=== PATIENT | female | born 1995 | race Caucasian/White ===

== ENCOUNTER 2016-09-15 06:20 | Emergency (ER) | payer OTHER ==
[2016-09-15 06:40] VITALS: TEMP 98.7; BMI 33.1
--- NOTE | 2016-09-15 07:50 | PDOC ---
History of Present Illness - General Chief Complaint: Psychiatric Stated Complaint: PANIC ATTACKS Time Seen by Provider: 09/15/16 07:11 History Source: Patient Exam Limitations: No Limitations - History of Present Illness Initial Comments: 21-year-old female presents to the ED with complaints of nervousness, heart palpitations, difficulty breathing, and feeling like her throat is closing intermittently since September 11. Patient states symptoms normally wake her up at around 4- 5 AM and to resolve with time but states today she has been up since 4 AM and symptoms have not completely resolved. Patient states that tried over- the-counter teas, yoga, relation techniques with no improvement. Patient denies recent change in weight, thyroid disorder, intolerance to heat, intolerance to cold, lethargy, hair loss, recent illness, or recent travel. Patient denies drug or alcohol use and states symptoms began after she had a bad breakup with her boyfriend who she is currently not with. Timing/Duration: intermittent Severity: moderate Associated Symptoms: anxiety Past History - Past Medical History Allergies/Adverse Reactions: Allergies No Known Allergies Allergy (Verified 09/15/16 06:31) Home Medications: Ambulatory Orders No Home Medications 0 dose .ROUTE UTDICT 08/03/13 Psychosocial History: Yes: no pertinent history Surgical History: Yes: No Surgical History LMP: 10/20/12 - Family History Significant Family History: Yes: no pertinent family hx - Social History Smoking History: No Smoking Status: Never smoked Number of Cigarettes Per Day: 0 Alcohol Use: none Drug Use: none Patient Lives Alone: No Lives With: parents *Review of Systems - Review of Systems Able to Perform ROS?: Yes Constitutional: No: Symptoms Reported HEENTM: No: Symptoms Reported Respiratory: Yes: Shortness of Breath Cardiac (ROS): Yes: Palpitations ABD/GI: No: Symptoms Reported : No: Symptoms Reported Integumentary: No: Symptoms Reported Neurological: No: Symptoms reported Endocrine: No: Symptoms Reported *Physical Exam - Vital Signs Last Vital Signs Temp Pulse Resp BP Pulse Ox 98.7 F 88 14 165/98 100 09/15/16 06:32 09/15/16 06:32 09/15/16 06:32 09/15/16 06:32 09/15/16 06:32 - Physical Exam General Appearance: Yes: Nourished, Appropriately Dressed. No: Apparent Distress HEENT: positive: TMs Normal, Pharynx Normal. negative: Pale Conjunctivae Neck: positive: Normal Thyroid, Supple Respiratory/Chest: positive: Lungs Clear, Normal Breath Sounds. negative: Respiratory Distress, Accessory Muscle Use Cardiovascular: positive: Regular Rhythm, Regular Rate. negative: Murmur, Gallop/S3 Gastrointestinal/Abdominal: positive: Soft. negative: Tenderness Extremity: negative: Pedal Edema Integumentary: positive: Normal Color, Warm, Moist Neurologic: positive: Normal Mood/Affect (calm body language ), Motor Strength 5 /5 (ambulatory) Plan - Progress Note Progress Note: 09/15/16 07:41 Patient here with intermittent anxiety-like symptoms. Patient on exam appeared calm and states symptoms have subsided slightly since arrival. Patien with likely panic attacks but will order CBC to rule out anemia, comp to rule out electrolyte imbalance, TSH to rule out thyroid disorders, urine to rule out , and an EKG. 09/15/16 09:07 Laboratory Tests 09/15/16 09/15/16 09/15/16 07:19 07:19 07:19 WBC 6.3 Hgb 13.1 Hct 40.0 Plt Count 185 Neutrophils % 57.3 Sodium 137 Potassium 4.1 Chloride 102 Carbon Dioxide 28 Anion Gap 7 L BUN 10 Creatinine 0.5 L Magnesium 2.0 AST 24 ALT 22 TSH Urine HCG, Qual Negative 09/15/16 07:30 WBC Hgb Hct Plt Count Neutrophils % Sodium Potassium Chloride Carbon Dioxide Anion Gap BUN Creatinine Magnesium AST ALT TSH 2.16 Urine HCG, Qual - Order(s) Order(s): Orders last 12 hours Category Date Time Status ELECTROCARDIOGRAM [CARD] Stat Cardiology 09/15/16 07:20 Ordered CBC WITH DIFFERENTIAL Stat Lab 09/15/16 07:19 Ordered HCG,QUALITATIVE URINE Stat Lab 09/15/16 07:19 Ordered - Laboratory CBC & Chemistry Diagram: 09/15/16 07:19 09/15/16 07:19 *DC/Admit/Observation/Transfer Diagnosis at time of Disposition: Anxiety - Discharge Dispostion Disposition: HOME Condition at time of disposition: Good - Patient Instructions Printed Discharge Instructions: DI for Anxiety -- Adult, Anxiety and Panic Attacks (Alternative Therapy) Additional Instructions: Please try relaxation techniques listed on your discharge summary. If no improvement you may also call your insurance company and see what provided you have for social service agency director or psychotherapist.
[2016-09-15 08:22] LABS: BASOPHIL 0.6 % (0-2.0); EOSINOPHIL 3.6 % (0-4.5); MCH 28.6 pg (25.7-33.7); MCHC 32.6 g/dl (32.0-36.0); MEAN CELL VOLUME 87.6 fl (80-96); MEAN PLT VOLUME 9.7 fl (7.5-11.1); NEUTROPHILS 57.3 % (42.8-82.8); PLATELET COUNT 185 K/MM3 (134-434); RDW 16.1 % (11.6-15.6); WHITE BLOOD COUNT 6.3 K/mm3 (4.0-10.0)
[2016-09-15 08:49] LABS: ALBUMIN 3.9 g/dl (3.4-5.0); ALK PHOS 72 U/L (45-117); ANION GAP 7 (8-16); BILIRUBIN,TOTAL 0.5 mg/dL (0.2-1.0); CO2 28 mmol/L (21-32); CREATININE 0.5 mg/dL (0.55-1.02); GLUCOSE,RANDOM 80 mg/dL (74-106); SGOT/AST 24 U/L (15-37); SGPT/ALT 22 U/L (12-78); TOT PROT 7.5 g/dl (6.4-8.2)
[2016-09-15 09:46] VITALS: BP 133/70; PULSE 90
--- NOTE | 2016-09-16 10:41 | EKG ---
Test Reason : Blood Pressure : / mmHG Vent. Rate : 063 BPM Atrial Rate : 063 BPM P-R Int : 150 ms QRS Dur : 090 ms QT Int : 384 ms P-R-T Axes : 018 075 046 degrees QTc Int : 392 ms NORMAL SINUS RHYTHM NORMAL ECG NO PREVIOUS ECGS AVAILABLE Confirmed by HARLEY PICKARD MD ([id number]) on 09/16/2016 10:41:26 AM Referred By: Confirmed By:HARLEY PICKARD MD
== END 2016-09-15 09:46 | disposition home or self-care (01) ==
LOC: JER 06:20
DX: F41.0 Panic disorder [episodic paroxysmal anxiety] (principal)
CPT/HCPCS: 36415; 80053; 83735; 84443; 84703; 85025; 93005; 93010; 99284-25

== ENCOUNTER 2020-08-03 08:42 | Emergency (ER) | payer BC, OTHER ==
[2020-08-03 08:55] VITALS: BMI 44.1
[2020-08-03 11:04] LABS: BASO % 0.9 % (0-2.0); EOS % 1.6 % (0-4.5); HEMATOCRIT 42.2 % (32.4-45.2); HEMOGLOBIN 14.3 GM/dL (10.7-15.3); MCH 33.5 pg (25.7-33.7); MCHC 33.8 g/dl (32.0-36.0); MEAN CELL VOLUME 99.1 fl (80-96); MEAN PLT VOLUME 8.4 fl (7.5-11.1); MONO % 5.6 % (3.8-10.2); NEUT % 72.9 % (42.8-82.8); PLATELET COUNT 231 K/MM3 (134-434); RBC 4.26 M/mm3 (3.60-5.2); RDW 17.2 % (11.6-15.6); WHITE BLOOD COUNT 8.4 K/mm3 (4.0-10.0)
[2020-08-03 11:27] LABS: CHLORIDE 98 mmol/L (98-107); SODIUM 137 mmol/L (136-145)
[2020-08-03 11:29] LABS: CALCIUM 9.2 mg/dL (8.5-10.1)
[2020-08-03 11:30] LABS: ALBUMIN 3.7 g/dl (3.4-5.0); ANION GAP 7 MMOL/L (8-16); BLOOD UREA NITROGEN 4.1 mg/dL (7-18); CO2 31 mmol/L (21-32); GLUCOSE,RANDOM 105 mg/dL (74-106)
[2020-08-03 11:33] LABS: CREATININE 0.4 mg/dL (0.55-1.3); SGOT/AST 117 U/L (15-37); SGPT/ALT 27 U/L (13-61)
[2020-08-03 11:35] LABS: BILIRUBIN,TOTAL 1.3 mg/dL (0.2-1); TOT PROT 8.4 g/dl (6.4-8.2)
[2020-08-03 11:36] LABS: ALK PHOS 140 U/L (45-117)
[2020-08-03 11:38] LABS: N-TERMINAL BNP 10.7 pg/ml (5-125)
[2020-08-03 15:04] VITALS: BP 152/87; PULSE 89; TEMP 98.8
== END 2020-08-03 15:29 | disposition home or self-care (01) ==
LOC: JER 08:42
DX: B36.0 Pityriasis versicolor (principal); R60.0 Localized edema; I87.2 Venous insufficiency (chronic) (peripheral); L53.9 Erythematous condition, unspecified
CPT/HCPCS: 36415; 71046-TC-FY; 80053; 82550; 83880; 84484; 85025; 87880; 93306-TC; 93970-TC; 99285-25

== ENCOUNTER 2021-01-23 13:22 | Emergency (ER) | payer BC ==
[2021-01-23 13:46] VITALS: TEMP 97.8; BMI 45.7
[2021-01-23] MEDS ORDERED: chlordiazePOXIDE HCL 25 MG CAPSULE PO ONE (14:16)
[2021-01-23] MEDS ORDERED: chlordiazePOXIDE HCL 25 MG CAPSULE ONE (14:32)
[2021-01-23] MEDS ORDERED: FLUCONAZOLE 50 MG TABLET PO ONE (14:42)
[2021-01-23] MEDS ORDERED: FLUCONAZOLE 150 MG TABLET PO ONE (14:44)
[2021-01-23 15:39] LABS: EPI CELLS 13 /uL (0-25.1); HYALINE CASTS 27 /uL (0-3.1); PH,URINE 5.5 (5.0-8.0); URINE APPEARANCE CLOUDY; URINE BACTERIA >9,000 /uL (0-1359); URINE BILIRUBIN 3+ (NEGATIVE); URINE COLOR ORANGE; URINE GLUCOSE (UA) NEGATIVE (NEGATIVE); URINE KETONE TRACE (NEGATIVE); URINE LEUK ESTERASE 2+ (NEGATIVE); URINE NITRITE POSITIVE (NEGATIVE); URINE PROTEIN 2+ (NEGATIVE); URINE RBC 12 /uL (0-23.9); URINE WBC 190 /uL (0-25.8)
[2021-01-23 15:40] VITALS: BP 125/79; PULSE 95
[2021-01-23 15:50] LABS: HCG,QUALITATIVE URINE NEGATIVE; URINE CRYSTALS NON SEEN /hpf; YEAST NON SEEN (NEGATIVE)
== END 2021-01-23 15:52 | disposition home or self-care (01) ==
LOC: JERFT 13:22
DX: B37.3 Candidiasis of vulva and vagina (principal); B35.4 Tinea corporis; F10.10 Alcohol abuse, uncomplicated; N30.00 Acute cystitis without hematuria
CPT/HCPCS: 36415; 81003; 82962; 84703; 87086; 87186; 87491; 87591; 99283-25

== ENCOUNTER 2021-01-29 10:03 | Inpatient (IN) | payer BC ==
[2021-01-29] MEDS ORDERED: FLUORESCEIN NA 1 EA STRIP OU ONE (11:31)
[2021-01-29] MEDS ORDERED: TETRACAINE 0.5% HCL 0.6ML DROPPER.BOTTLE OU ONE (11:31)
[2021-01-29] MEDS ORDERED: MAG HYDROX/ALH/SMC/DPHA/LIDO 240 ML MOUTHWASH MM ONE (13:29)
[2021-01-29] MEDS ORDERED: SODIUM CHLORIDE 1,000 ML IV STA (16:24)
[2021-01-29 18:30] LABS: BASO % 0.3 % (0-2.0); EOS % 0.5 % (0-4.5); HEMATOCRIT 33.3 % (32.4-45.2); LYMPH % 13.7 % (8-40); MCHC 33.1 g/dl (32.0-36.0); MEAN CELL VOLUME 105.7 fl (80-96); MEAN PLT VOLUME 8.3 fl (7.5-11.1); MONO % 6.6 % (3.8-10.2); NEUT % 78.9 % (42.8-82.8); PLATELET COUNT 286 10^3/uL (134-434); RBC 3.15 M/mm3 (3.60-5.2); RDW 21.1 % (11.6-15.6); WHITE BLOOD COUNT 11.7 K/mm3 (4.0-10.0)
[2021-01-29 18:44] LABS: BLOOD UREA NITROGEN 4.5 mg/dL (7-18); CALCIUM 9.2 mg/dL (8.5-10.1)
[2021-01-29 18:48] LABS: CREATININE 0.5 mg/dL (0.55-1.3)
[2021-01-29 18:49] LABS: BILIRUBIN,TOTAL 5.2 mg/dL (0.2-1); TOT PROT 7.7 g/dl (6.4-8.2)
[2021-01-29 21:16] LABS: EPI CELLS 35 /uL (0-25.1); HYALINE CASTS 61 /uL (0-3.1); PH,URINE 5.5 (5.0-8.0); URINE APPEARANCE CLOUDY; URINE BILIRUBIN 3+ (NEGATIVE); URINE COLOR ORANGE; URINE GLUCOSE (UA) NEGATIVE (NEGATIVE); URINE KETONE NEGATIVE (NEGATIVE); URINE LEUK ESTERASE 1+ (NEGATIVE); URINE NITRITE POSITIVE (NEGATIVE); URINE PROTEIN 1+ (NEGATIVE); URINE UROBILINOGEN 4.0 E.U/dl mg/dL (0.2-1.0); URINE WBC 189 /uL (0-25.8)
[2021-01-29 22:19] LABS: INR 1.81 (0.83-1.09); PROTHROMBIN TIME (PATIENT) 21.3 SEC (9.7-13.0)
[2021-01-29 22:21] LABS: ACTIVATED PTT 39.5 SECONDS (25.2-36.5)
[2021-01-29] MEDS ORDERED: ACYCLOVIR 1000 MG (50MG/ML) VIAL IVPB ONE (23:00)
[2021-01-29 23:45] LABS: ANISOCYTOSIS 2+; MACROCYTOSIS 2+; PLATELET ESTIMATE ADEQUATE
[2021-01-29] MEDS ORDERED: ACYCLOVIR INJECTION 400 MG in DEXTROSE 5%-WATER - 100 ML IVPB ONE (23:45)
[2021-01-30 00:48] LABS: HIV INTERPRETATION NEGATIVE (NEGATIVE)
[2021-01-30] MEDS ORDERED: CEFTRIAXONE 1,000 MG in DEXTROSE 5%-WATER - 50 ML IVPB ONE (01:03)
[2021-01-30] MEDS: SODIUM CHLORIDE 1,000 ML IV SCH ×2 (01:44→18:27)
[2021-01-30] MEDS ORDERED: CEFTRIAXONE 1 GM/50 ML BAG ONE (01:50)
[2021-01-30] MEDS ORDERED: FOLIC ACID INJECTION - 1 MG, THIAMINE HCL 100 MG, MULTIVIT INJECTION ADULT 10 ML in SOD... IVPB ONE (02:54)
[2021-01-30] MEDS ORDERED: ACETAMINOPHEN 1000 MG/100 ML VIAL IVPB PRN (02:58)
[2021-01-30 05:36] LABS: URINE RBC 6 /uL (0-23.9)
[2021-01-30] MEDS ORDERED: FOLIC ACID INJECTION - 1 MG, THIAMINE HCL 100 MG in SODIUM CHLORIDE 998.8 ML IVPB ONE (06:45)
[2021-01-30] MEDS ORDERED: FLUCONAZOLE 150 MG TABLET PO ONE ×2 (08:00→09:13)
[2021-01-30] MEDS: MAG HYDROX/ALH/SMC/DPHA/LIDO 240 ML MOUTHWASH MM SCH ×4 (08:49→23:07)
[2021-01-30] MEDS ORDERED: MULTIVITAMINS (DAILY MVI) TABLET (FP) ONE (09:14)
[2021-01-30] MEDS ORDERED: ENOXAPARIN NA (PORCINE) 40 MG/0.4 ML DISP.SYRIN SQ ONE (09:14)
[2021-01-30] MEDS: ENOXAPARIN NA (PORCINE) 40 MG/0.4 ML DISP.SYRIN SQ SCH (09:15)
[2021-01-30] MEDS: MULTIVITAMINS (DAILY MVI) TABLET (FP) PO SCH (09:15)
[2021-01-30] MEDS ORDERED: PANTOPRAZOLE SODIUM 40 MG/100 ML BAG IVPB ONE (09:16)
[2021-01-30] MEDS ORDERED: ACYCLOVIR INJECTION 700 MG in DEXTROSE 5%-WATER - 100 ML IVPB SCH (10:00)
[2021-01-30] MEDS: PANTOPRAZOLE SODIUM 40 MG VIAL IVPUSH SCH (11:01)
[2021-01-30] MEDS: CLOTRIMAZOLE 1% CREAM TP SCH ×2 (16:13→21:49)
[2021-01-30] MEDS ORDERED: PT OWN MED DRAWER 7, Y5N ONE (16:51)
[2021-01-30] MEDS: ACYCLOVIR INJECTION 1,000 MG in DEXTROSE 5%-WATER - 250 ML IVPB SCH (18:27)
[2021-01-30] MEDS: POTASSIUM CHLORIDE TABS 20 MEQ TABLET.ER (FP) PO SCH (18:29)
[2021-01-30] MEDS ORDERED: FLU VACC QS2021-22(6MOS UP)/PF 60 MCG/0.5 ML SYRINGE IM ONE (19:01)
[2021-01-30 19:50] LABS: ARTERIAL BLD GAS O2 SATURATION 99.2 % (95-98); ARTERIAL BLOOD GAS BASE EXCESS 10.4 mmol/L (-2-2); ARTERIAL BLOOD GAS PO2 159.3 mmHg (80-100); ARTERIAL BLOOD GAS pH 7.541 (7.350-7.450)
[2021-01-30] MEDS: ALBUTEROL SO4 2.5/IPRATROPIUM 0.5 INH SOL 3 ML VIAL.NEB. NEB PRN (20:12)
[2021-01-31] MEDS: ACYCLOVIR INJECTION 1,000 MG in DEXTROSE 5%-WATER - 250 ML IVPB SCH ×3 (01:42→17:24)
[2021-01-31] MEDS: MAG HYDROX/ALH/SMC/DPHA/LIDO 240 ML MOUTHWASH MM SCH ×5 (05:49→23:32)
[2021-01-31 07:18] LABS: BASO % 0.4 % (0-2.0); EOS % 1.3 % (0-4.5); HEMOGLOBIN 9.7 GM/dL (10.7-15.3); LYMPH % 14.6 % (8-40); MCH 35.5 pg (25.7-33.7); MCHC 33.7 g/dl (32.0-36.0); MEAN CELL VOLUME 105.5 fl (80-96); MEAN PLT VOLUME 8.1 fl (7.5-11.1); MONO % 6.7 % (3.8-10.2); PLATELET COUNT 279 10^3/uL (134-434); RBC 2.74 M/mm3 (3.60-5.2); RDW 21.1 % (11.6-15.6); WHITE BLOOD COUNT 10.8 K/mm3 (4.0-10.0)
[2021-01-31 07:29] LABS: INR 1.89 (0.83-1.09); PROTHROMBIN TIME (PATIENT) 21.3 SEC (9.7-13.0)
[2021-01-31 07:55] LABS: ALBUMIN 2.5 g/dl (3.4-5.0); BILIRUBIN,DIRECT 4.1 mg/dL (0.0-0.2); BILIRUBIN,TOTAL 5.2 mg/dL (0.2-1); TOT PROT 6.6 g/dl (6.4-8.2)
[2021-01-31] MEDS ORDERED: DEXTROSE 5%-WATER - 50 ML IVPB ONE (09:04)
[2021-01-31] MEDS ORDERED: cefTRIAXone SODIUM 1 GM VIAL ONE (09:04)
[2021-01-31] MEDS: SODIUM CHLORIDE 1,000 ML IV SCH ×2 (09:10→20:46)
[2021-01-31] MEDS: ENOXAPARIN NA (PORCINE) 40 MG/0.4 ML DISP.SYRIN SQ SCH (09:15)
[2021-01-31] MEDS: PANTOPRAZOLE SODIUM 40 MG VIAL IVPUSH SCH (09:17)
[2021-01-31] MEDS: MULTIVITAMINS (DAILY MVI) TABLET (FP) PO SCH (09:17)
[2021-01-31] MEDS: CLOTRIMAZOLE 1% CREAM TP SCH ×2 (09:17→21:33)
[2021-01-31] MEDS: POTASSIUM CHLORIDE TABS 20 MEQ TABLET.ER (FP) PO SCH (09:17)
[2021-01-31] MEDS: THIAMINE HCL 100 MG TABLET (FP) PO SCH (09:18)
[2021-01-31 09:26] LABS: ALBUMIN 2.5 g/dl (3.4-5.0); BILIRUBIN,TOTAL 5.1 mg/dL (0.2-1); CREATININE 1.1 mg/dL (0.55-1.3); MAGNESIUM 1.8 mg/dL (1.8-2.4); TOT PROT 6.6 g/dl (6.4-8.2)
[2021-01-31] MEDS ORDERED: CEFTRIAXONE 1 GM in DEXTROSE 5%-WATER - 50 ML IVPB SCH (10:00)
[2021-01-31] MEDS: CEFUROXIME AXETIL 500 MG TABLET PO SCH (21:33)
[2021-02-01] MEDS: ACYCLOVIR INJECTION 1,000 MG in DEXTROSE 5%-WATER - 250 ML IVPB SCH ×3 (01:15→17:23)
[2021-02-01] MEDS: SODIUM CHLORIDE 1,000 ML IV SCH (06:20)
[2021-02-01] MEDS: LEVOTHYROXINE NA 25 MCG TABLET (FP) PO SCH (06:20)
[2021-02-01] MEDS: MAG HYDROX/ALH/SMC/DPHA/LIDO 240 ML MOUTHWASH MM SCH ×4 (06:21→23:46)
[2021-02-01] MEDS: ALBUTEROL SO4 2.5/IPRATROPIUM 0.5 INH SOL 3 ML VIAL.NEB. NEB PRN ×2 (08:27→23:23)
[2021-02-01 08:47] LABS: BASO % 0.4 % (0-2.0); EOS % 1.7 % (0-4.5); HEMATOCRIT 28.2 % (32.4-45.2); HEMOGLOBIN 9.8 GM/dL (10.7-15.3); LYMPH % 11.6 % (8-40); MCH 36.1 pg (25.7-33.7); MCHC 34.6 g/dl (32.0-36.0); MEAN CELL VOLUME 104.3 fl (80-96); MEAN PLT VOLUME 7.8 fl (7.5-11.1); MONO % 9.7 % (3.8-10.2); NEUT % 76.6 % (42.8-82.8); PLATELET COUNT 293 10^3/uL (134-434); RDW 21.4 % (11.6-15.6); WHITE BLOOD COUNT 10.8 K/mm3 (4.0-10.0)
[2021-02-01] MEDS: POLYETHYLENE GLYCOL (HEALTHYLAX) 3350 17 GM PACKET PO PRN (09:34)
[2021-02-01] MEDS: THIAMINE HCL 100 MG TABLET (FP) PO SCH (09:35)
[2021-02-01] MEDS: CLOTRIMAZOLE 1% CREAM TP SCH ×2 (09:35→21:18)
[2021-02-01] MEDS: PANTOPRAZOLE SODIUM 40 MG VIAL IVPUSH SCH (09:35)
[2021-02-01] MEDS: MULTIVITAMINS (DAILY MVI) TABLET (FP) PO SCH (09:35)
[2021-02-01] MEDS: POTASSIUM CHLORIDE TABS 20 MEQ TABLET.ER (FP) PO SCH (09:35)
[2021-02-01] MEDS: ENOXAPARIN NA (PORCINE) 40 MG/0.4 ML DISP.SYRIN SQ SCH (09:35)
[2021-02-01] MEDS: CEFUROXIME AXETIL 500 MG TABLET PO SCH ×2 (09:35→21:18)
[2021-02-01 10:44] LABS: ALBUMIN 2.5 g/dl (3.4-5.0); BILIRUBIN,TOTAL 5.2 mg/dL (0.2-1); BLOOD UREA NITROGEN 8.5 mg/dL (7-18); CALCIUM 8.3 mg/dL (8.5-10.1); CREATININE 1.3 mg/dL (0.55-1.3); TOT PROT 6.9 g/dl (6.4-8.2)
[2021-02-02] MEDS: ACYCLOVIR INJECTION 1,000 MG in DEXTROSE 5%-WATER - 250 ML IVPB SCH ×2 (01:03→09:49)
[2021-02-02] MEDS: MAG HYDROX/ALH/SMC/DPHA/LIDO 240 ML MOUTHWASH MM SCH ×3 (06:04→18:02)
[2021-02-02] MEDS: LEVOTHYROXINE NA 25 MCG TABLET (FP) PO SCH (06:04)
[2021-02-02 08:23] LABS: BASO % 0.6 % (0-2.0); EOS % 1.8 % (0-4.5); HEMATOCRIT 29.3 % (32.4-45.2); HEMOGLOBIN 9.8 GM/dL (10.7-15.3); LYMPH % 10.8 % (8-40); MCH 35.5 pg (25.7-33.7); MCHC 33.5 g/dl (32.0-36.0); MEAN CELL VOLUME 105.8 fl (80-96); MEAN PLT VOLUME 7.9 fl (7.5-11.1); MONO % 8.7 % (3.8-10.2); NEUT % 78.1 % (42.8-82.8); PLATELET COUNT 324 10^3/uL (134-434); RBC 2.77 M/mm3 (3.60-5.2); RDW 21.4 % (11.6-15.6)
[2021-02-02] MEDS: MULTIVITAMINS (DAILY MVI) TABLET (FP) PO SCH (09:48)
[2021-02-02] MEDS: ENOXAPARIN NA (PORCINE) 40 MG/0.4 ML DISP.SYRIN SQ SCH (09:48)
[2021-02-02] MEDS: POTASSIUM CHLORIDE TABS 20 MEQ TABLET.ER (FP) PO SCH (09:48)
[2021-02-02] MEDS: CLOTRIMAZOLE 1% CREAM TP SCH ×2 (09:48→21:51)
[2021-02-02] MEDS: CEFUROXIME AXETIL 500 MG TABLET PO SCH ×2 (09:48→21:51)
[2021-02-02] MEDS: THIAMINE HCL 100 MG TABLET (FP) PO SCH (09:48)
[2021-02-02] MEDS: POLYETHYLENE GLYCOL (HEALTHYLAX) 3350 17 GM PACKET PO PRN (09:49)
[2021-02-02] MEDS: PANTOPRAZOLE SODIUM 40 MG VIAL IVPUSH SCH (09:49)
[2021-02-02 11:45] LABS: ALBUMIN 2.6 g/dl (3.4-5.0); BILIRUBIN,TOTAL 5.2 mg/dL (0.2-1); BLOOD UREA NITROGEN 12.6 mg/dL (7-18); CALCIUM 8.6 mg/dL (8.5-10.1); TOT PROT 7.1 g/dl (6.4-8.2)
[2021-02-02] MEDS ORDERED: SODIUM CHLORIDE 1,000 ML IV SCH (13:45)
[2021-02-02] MEDS ORDERED: FUROSEMIDE 40 MG/4 ML INJECTABLE VIAL IVPUSH ONE (13:59)
[2021-02-02] MEDS ORDERED: POTASSIUM CHLORIDE TABS 20 MEQ TABLET.ER (FP) PO ONE (14:02)
[2021-02-03] MEDS: MAG HYDROX/ALH/SMC/DPHA/LIDO 240 ML MOUTHWASH MM SCH ×5 (00:52→23:09)
[2021-02-03] MEDS: LEVOTHYROXINE NA 25 MCG TABLET (FP) PO SCH ×2 (06:03→08:11)
[2021-02-03] MEDS ORDERED: PT OWN MED DRAWER 7, Y5N ONE (06:20)
[2021-02-03] MEDS: guaiFENesin/D-M SUGAR-FREE/ACLHOL-FREE 118 ML BOTTLE PO PRN (06:20)
[2021-02-03] MEDS: ALBUTEROL SO4 2.5/IPRATROPIUM 0.5 INH SOL 3 ML VIAL.NEB. NEB PRN (06:48)
[2021-02-03 08:21] LABS: BASO % 0.8 % (0-2.0); EOS % 2.5 % (0-4.5); HEMATOCRIT 28.8 % (32.4-45.2); HEMOGLOBIN 9.6 GM/dL (10.7-15.3); LYMPH % 11.9 % (8-40); MCH 35.5 pg (25.7-33.7); MCHC 33.5 g/dl (32.0-36.0); MEAN PLT VOLUME 8.4 fl (7.5-11.1); MONO % 10.1 % (3.8-10.2); NEUT % 74.7 % (42.8-82.8); PLATELET COUNT 332 10^3/uL (134-434); RBC 2.71 M/mm3 (3.60-5.2); RDW 21.4 % (11.6-15.6); WHITE BLOOD COUNT 10.1 K/mm3 (4.0-10.0)
[2021-02-03 09:06] LABS: ALBUMIN 2.3 g/dl (3.4-5.0); BLOOD UREA NITROGEN 17.4 mg/dL (7-18); CALCIUM 8.8 mg/dL (8.5-10.1)
[2021-02-03 09:11] LABS: BILIRUBIN,TOTAL 5.6 mg/dL (0.2-1); TOT PROT 6.8 g/dl (6.4-8.2)
[2021-02-03] MEDS: PANTOPRAZOLE SODIUM 40 MG VIAL IVPUSH SCH (09:16)
[2021-02-03] MEDS: MULTIVITAMINS (DAILY MVI) TABLET (FP) PO SCH (09:16)
[2021-02-03] MEDS: CLOTRIMAZOLE 1% CREAM TP SCH ×2 (09:16→21:26)
[2021-02-03] MEDS: ENOXAPARIN NA (PORCINE) 40 MG/0.4 ML DISP.SYRIN SQ SCH (09:16)
[2021-02-03] MEDS: POTASSIUM CHLORIDE TABS 20 MEQ TABLET.ER (FP) PO SCH (09:16)
[2021-02-03] MEDS: CEFUROXIME AXETIL 500 MG TABLET PO SCH ×2 (09:16→21:26)
[2021-02-03] MEDS: THIAMINE HCL 100 MG TABLET (FP) PO SCH (09:16)
[2021-02-03] MEDS: ALBUTEROL SO4 2.5/IPRATROPIUM 0.5 INH SOL 3 ML VIAL.NEB. NEB SCH ×2 (15:00→20:00)
[2021-02-03 15:50] LABS: IRON SERUM 33 ug/dL (50-175); TOTAL IRON BINDING CAPACITY 199 ug/dL (250-450)
[2021-02-03 17:29] VITALS: BMI 40.7
[2021-02-03] MEDS ORDERED: SODIUM CHLORIDE 1,000 ML IV SCH (17:30)
[2021-02-03 20:52] LABS: EPI CELLS 11 /uL (0-25.1); HYALINE CASTS 4 /uL (0-3.1); URINE APPEARANCE CLOUDY; URINE BILIRUBIN 2+ (NEGATIVE); URINE COLOR DK YELLOW; URINE GLUCOSE (UA) NEGATIVE (NEGATIVE); URINE KETONE NEGATIVE (NEGATIVE); URINE LEUK ESTERASE TRACE (NEGATIVE); URINE NITRITE POSITIVE (NEGATIVE); URINE PROTEIN TRACE (NEGATIVE); URINE WBC 398 /uL (0-25.8)
[2021-02-03 20:58] LABS: URINE BACTERIA 219.5 /uL (0-1359); URINE RBC 565.3 /uL (0-23.9)
[2021-02-04] MEDS: MAG HYDROX/ALH/SMC/DPHA/LIDO 240 ML MOUTHWASH MM SCH ×4 (05:26→23:40)
[2021-02-04] MEDS: LEVOTHYROXINE NA 25 MCG TABLET (FP) PO SCH (06:03)
[2021-02-04] MEDS: ALBUTEROL SO4 2.5/IPRATROPIUM 0.5 INH SOL 3 ML VIAL.NEB. NEB SCH ×3 (07:25→21:19)
[2021-02-04 08:40] LABS: CALCIUM 8.9 mg/dL (8.5-10.1)
[2021-02-04 08:41] LABS: ALBUMIN 2.3 g/dl (3.4-5.0); BLOOD UREA NITROGEN 18.4 mg/dL (7-18)
[2021-02-04 08:44] LABS: CREATININE 1.4 mg/dL (0.55-1.3)
[2021-02-04 08:46] LABS: BILIRUBIN,TOTAL 5.6 mg/dL (0.2-1)
[2021-02-04] MEDS: PANTOPRAZOLE SODIUM 40 MG VIAL IVPUSH SCH (09:20)
[2021-02-04] MEDS: CEFUROXIME AXETIL 500 MG TABLET PO SCH ×2 (09:20→21:02)
[2021-02-04] MEDS: POTASSIUM CHLORIDE TABS 20 MEQ TABLET.ER (FP) PO SCH (09:20)
[2021-02-04] MEDS: ENOXAPARIN NA (PORCINE) 40 MG/0.4 ML DISP.SYRIN SQ SCH (09:20)
[2021-02-04] MEDS: THIAMINE HCL 100 MG TABLET (FP) PO SCH (09:21)
[2021-02-04] MEDS: MULTIVITAMINS (DAILY MVI) TABLET (FP) PO SCH (09:21)
[2021-02-04] MEDS: CLOTRIMAZOLE 1% CREAM TP SCH ×2 (09:21→21:02)
[2021-02-04] MEDS ORDERED: SODIUM CHLORIDE 1,000 ML IV SCH (13:17)
[2021-02-04] MEDS ORDERED: IRON SUCROSE INJECTION 200 MG in SODIUM CHLORIDE 90 ML IVPB ONE (13:26)
[2021-02-04] MEDS: guaiFENesin/D-M SUGAR-FREE/ACLHOL-FREE 118 ML BOTTLE PO PRN (20:39)
[2021-02-05] MEDS: guaiFENesin/D-M SUGAR-FREE/ACLHOL-FREE 118 ML BOTTLE PO PRN ×2 (04:30→21:02)
[2021-02-05 05:36] LABS: PHOSPHOROUS 3.7 mg/dL (2.5-4.9)
[2021-02-05] MEDS: LEVOTHYROXINE NA 25 MCG TABLET (FP) PO SCH (05:59)
[2021-02-05] MEDS: MAG HYDROX/ALH/SMC/DPHA/LIDO 240 ML MOUTHWASH MM SCH ×4 (05:59→23:14)
[2021-02-05] MEDS: ALBUTEROL SO4 2.5/IPRATROPIUM 0.5 INH SOL 3 ML VIAL.NEB. NEB SCH ×3 (07:35→19:52)
[2021-02-05 09:21] LABS: BLOOD UREA NITROGEN 15.7 mg/dL (7-18); CALCIUM 8.6 mg/dL (8.5-10.1)
[2021-02-05 09:25] LABS: CREATININE 0.9 mg/dL (0.55-1.3)
[2021-02-05] MEDS: THIAMINE HCL 100 MG TABLET (FP) PO SCH (09:31)
[2021-02-05] MEDS: MULTIVITAMINS (DAILY MVI) TABLET (FP) PO SCH (09:32)
[2021-02-05] MEDS: CLOTRIMAZOLE 1% CREAM TP SCH ×2 (09:32→22:15)
[2021-02-05] MEDS: POTASSIUM CHLORIDE TABS 20 MEQ TABLET.ER (FP) PO SCH (09:32)
[2021-02-05] MEDS: CEFUROXIME AXETIL 500 MG TABLET PO SCH ×2 (09:32→22:15)
[2021-02-05] MEDS: POLYETHYLENE GLYCOL (HEALTHYLAX) 3350 17 GM PACKET PO PRN (09:32)
[2021-02-05] MEDS: ENOXAPARIN NA (PORCINE) 40 MG/0.4 ML DISP.SYRIN SQ SCH (09:32)
[2021-02-05 09:45] LABS: INR 1.88 (0.83-1.09); PROTHROMBIN TIME (PATIENT) 21.2 SEC (9.7-13.0)
[2021-02-05] MEDS ORDERED: PANTOPRAZOLE 40 MG TABLET PO SCH (10:00)
[2021-02-05 13:23] LABS: BASO % 0.3 % (0-2.0); EOS % 2.4 % (0-4.5); HEMATOCRIT 29.2 % (32.4-45.2); HEMOGLOBIN 9.9 GM/dL (10.7-15.3); MCH 36.1 pg (25.7-33.7); MCHC 33.9 g/dl (32.0-36.0); MEAN CELL VOLUME 106.6 fl (80-96); MEAN PLT VOLUME 8.2 fl (7.5-11.1); MONO % 9.8 % (3.8-10.2); NEUT % 77.5 % (42.8-82.8); PLATELET COUNT 348 10^3/uL (134-434); RBC 2.74 M/mm3 (3.60-5.2); RDW 22.1 % (11.6-15.6); WHITE BLOOD COUNT 10.6 K/mm3 (4.0-10.0)
[2021-02-05 14:37] LABS: ANISOCYTOSIS 1+; MACROCYTOSIS 1+; PLATELET ESTIMATE NORMAL; TARGET CELLS 1+; TEAR DROP CELLS 1+
[2021-02-06] MEDS: MAG HYDROX/ALH/SMC/DPHA/LIDO 240 ML MOUTHWASH MM SCH ×3 (05:32→17:24)
[2021-02-06] MEDS: LEVOTHYROXINE NA 25 MCG TABLET (FP) PO SCH (06:50)
[2021-02-06] MEDS: ALBUTEROL SO4 2.5/IPRATROPIUM 0.5 INH SOL 3 ML VIAL.NEB. NEB SCH ×3 (07:42→20:35)
[2021-02-06] MEDS: THIAMINE HCL 100 MG TABLET (FP) PO SCH (09:03)
[2021-02-06] MEDS: POTASSIUM CHLORIDE TABS 20 MEQ TABLET.ER (FP) PO SCH (09:03)
[2021-02-06] MEDS: MULTIVITAMINS (DAILY MVI) TABLET (FP) PO SCH (09:03)
[2021-02-06] MEDS: guaiFENesin/D-M SUGAR-FREE/ACLHOL-FREE 118 ML BOTTLE PO PRN (09:03)
[2021-02-06] MEDS: ENOXAPARIN NA (PORCINE) 40 MG/0.4 ML DISP.SYRIN SQ SCH (09:04)
[2021-02-06] MEDS: CLOTRIMAZOLE 1% CREAM TP SCH ×2 (09:04→22:39)
[2021-02-06 09:54] LABS: ALBUMIN 2.4 g/dl (3.4-5.0)
[2021-02-06 09:58] LABS: BILIRUBIN,DIRECT 4.5 mg/dL (0.0-0.2)
[2021-02-06 09:59] LABS: BILIRUBIN,TOTAL 5.5 mg/dL (0.2-1); TOT PROT 7.1 g/dl (6.4-8.2)
[2021-02-06] MEDS ORDERED: PHYTONADIONE 10 MG/1 ML AMP IVPB ONE (11:30)
[2021-02-06] MEDS: FUROSEMIDE 20 MG TABLET (FP) PO SCH (12:56)
[2021-02-06 13:30] LABS: CALCIUM 8.8 mg/dL (8.5-10.1)
[2021-02-06 13:31] LABS: BLOOD UREA NITROGEN 13.1 mg/dL (7-18)
[2021-02-06 13:34] LABS: CREATININE 0.7 mg/dL (0.55-1.3)
[2021-02-07] MEDS: MAG HYDROX/ALH/SMC/DPHA/LIDO 240 ML MOUTHWASH MM SCH ×4 (02:21→17:12)
[2021-02-07] MEDS: guaiFENesin/D-M SUGAR-FREE/ACLHOL-FREE 118 ML BOTTLE PO PRN ×2 (02:35→10:25)
[2021-02-07] MEDS: LEVOTHYROXINE NA 25 MCG TABLET (FP) PO SCH (06:12)
[2021-02-07] MEDS: ALBUTEROL SO4 2.5/IPRATROPIUM 0.5 INH SOL 3 ML VIAL.NEB. NEB SCH ×3 (07:55→20:48)
[2021-02-07] MEDS: MULTIVITAMINS (DAILY MVI) TABLET (FP) PO SCH (10:25)
[2021-02-07] MEDS: THIAMINE HCL 100 MG TABLET (FP) PO SCH (10:25)
[2021-02-07] MEDS: POTASSIUM CHLORIDE TABS 20 MEQ TABLET.ER (FP) PO SCH (10:25)
[2021-02-07] MEDS: ENOXAPARIN NA (PORCINE) 40 MG/0.4 ML DISP.SYRIN SQ SCH (10:25)
[2021-02-07] MEDS: FUROSEMIDE 20 MG TABLET (FP) PO SCH (10:25)
[2021-02-07] MEDS: CLOTRIMAZOLE 1% CREAM TP SCH (10:26)
[2021-02-07 10:41] LABS: BASO % 0.7 % (0-2.0); EOS % 3.8 % (0-4.5); HEMATOCRIT 27.1 % (32.4-45.2); HEMOGLOBIN 9.1 GM/dL (10.7-15.3); LYMPH % 13.8 % (8-40); MCH 36.1 pg (25.7-33.7); MCHC 33.5 g/dl (32.0-36.0); MEAN CELL VOLUME 107.8 fl (80-96); MEAN PLT VOLUME 8.7 fl (7.5-11.1); NEUT % 72.7 % (42.8-82.8); PLATELET COUNT 289 10^3/uL (134-434); RBC 2.52 M/mm3 (3.60-5.2); RDW 22.2 % (11.6-15.6); WHITE BLOOD COUNT 9.6 K/mm3 (4.0-10.0)
[2021-02-07 10:50] LABS: ALBUMIN 2.2 g/dl (3.4-5.0)
[2021-02-07 10:53] LABS: BILIRUBIN,DIRECT 4.3 mg/dL (0.0-0.2)
[2021-02-07 10:54] LABS: TOT PROT 6.7 g/dl (6.4-8.2)
[2021-02-07 10:55] LABS: BILIRUBIN,TOTAL 5.4 mg/dL (0.2-1)
[2021-02-07 12:25] LABS: INR 1.83 (0.83-1.09); PROTHROMBIN TIME (PATIENT) 20.6 SEC (9.7-13.0)
[2021-02-07 12:40] LABS: BLOOD UREA NITROGEN 10.8 mg/dL (7-18)
[2021-02-07 12:43] LABS: CREATININE 0.6 mg/dL (0.55-1.3)
[2021-02-07] MEDS ORDERED: FUROSEMIDE 40 MG/4 ML INJECTABLE VIAL IVPUSH ONE (13:01)
[2021-02-07 16:30] LABS: EPI CELLS 13 /uL (0-25.1); HYALINE CASTS 2 /uL (0-3.1); URINE APPEARANCE CLEAR; URINE BACTERIA 73 /uL (0-1359); URINE BILIRUBIN NEGATIVE (NEGATIVE); URINE COLOR YELLOW; URINE GLUCOSE (UA) NEGATIVE (NEGATIVE); URINE KETONE NEGATIVE (NEGATIVE); URINE LEUK ESTERASE TRACE (NEGATIVE); URINE NITRITE NEGATIVE (NEGATIVE); URINE PROTEIN NEGATIVE (NEGATIVE); URINE RBC 223 /uL (0-23.9); URINE WBC 21 /uL (0-25.8)
[2021-02-08] MEDS: CLOTRIMAZOLE 1% CREAM TP SCH ×3 (00:39→21:24)
[2021-02-08] MEDS: MAG HYDROX/ALH/SMC/DPHA/LIDO 240 ML MOUTHWASH MM SCH ×4 (00:57→17:03)
[2021-02-08] MEDS: LEVOTHYROXINE NA 25 MCG TABLET (FP) PO SCH (07:43)
[2021-02-08 09:22] LABS: BLOOD UREA NITROGEN 8.8 mg/dL (7-18); MAGNESIUM 1.5 mg/dL (1.8-2.4)
[2021-02-08 09:23] LABS: CALCIUM 8.5 mg/dL (8.5-10.1)
[2021-02-08 09:25] LABS: CREATININE 0.5 mg/dL (0.55-1.3)
[2021-02-08] MEDS: ALBUTEROL SO4 2.5/IPRATROPIUM 0.5 INH SOL 3 ML VIAL.NEB. NEB SCH ×3 (09:25→20:22)
[2021-02-08] MEDS ORDERED: PT OWN MED DRAWER 7, Y5N ONE ×2 (10:13→14:02)
[2021-02-08] MEDS: POTASSIUM CHLORIDE TABS 20 MEQ TABLET.ER (FP) PO SCH (10:15)
[2021-02-08] MEDS: ENOXAPARIN NA (PORCINE) 40 MG/0.4 ML DISP.SYRIN SQ SCH (10:15)
[2021-02-08] MEDS: THIAMINE HCL 100 MG TABLET (FP) PO SCH (10:15)
[2021-02-08] MEDS: guaiFENesin/D-M SUGAR-FREE/ACLHOL-FREE 118 ML BOTTLE PO PRN (10:15)
[2021-02-08] MEDS: MULTIVITAMINS (DAILY MVI) TABLET (FP) PO SCH (10:15)
[2021-02-08] MEDS: FUROSEMIDE 40 MG TABLET (FP) PO SCH (10:15)
[2021-02-08] MEDS: BUDESONIDE/FORMETEROL FUMARATE 160/4.5 mcg INHALER IH SCH ×2 (11:52→21:25)
[2021-02-08 12:52] LABS: BILIRUBIN,DIRECT 4.3 mg/dL (0.0-0.2)
[2021-02-08 12:54] LABS: BILIRUBIN,TOTAL 5.4 mg/dL (0.2-1); TOT PROT 6.4 g/dl (6.4-8.2)
[2021-02-08] MEDS ORDERED: FUROSEMIDE 40 MG TABLET (FP) PO ONE (14:00)
[2021-02-08] MEDS: MICONAZOLE NITRATE 200 MG VAGINAL SUPPOSITORY PV SCH (21:25)
[2021-02-08] MEDS: guaiFENesin/CODEINE 10 ML UNIT-DOSE CUPS PO PRN (21:44)
[2021-02-09] MEDS: MAG HYDROX/ALH/SMC/DPHA/LIDO 240 ML MOUTHWASH MM SCH ×4 (00:02→17:06)
[2021-02-09] MEDS ORDERED: FUROSEMIDE 40 MG/4 ML INJECTABLE VIAL IVPUSH ONE (04:15)
[2021-02-09] MEDS ORDERED: MAGNESIUM OXIDE 400 MG TABLET (FP) PO ONE (04:41)
[2021-02-09 05:08] LABS: ARTERIAL BLD GAS O2 SATURATION 96.6 % (95-98); ARTERIAL BLOOD GAS BASE EXCESS 3.6 mmol/L (-2-2); ARTERIAL BLOOD GAS PO2 87.8 mmHg (80-100); ARTERIAL BLOOD GAS pH 7.399 (7.350-7.450)
[2021-02-09 05:12] LABS: ALLENS TEST POSITIVE
[2021-02-09] MEDS: LEVOTHYROXINE NA 25 MCG TABLET (FP) PO SCH (06:42)
[2021-02-09] MEDS: ALBUTEROL SO4 2.5/IPRATROPIUM 0.5 INH SOL 3 ML VIAL.NEB. NEB SCH ×3 (08:47→20:15)
[2021-02-09 08:56] LABS: BASO % 0.5 % (0-2.0); EOS % 3.2 % (0-4.5); HEMATOCRIT 29.6 % (32.4-45.2); HEMOGLOBIN 9.8 GM/dL (10.7-15.3); LYMPH % 10.6 % (8-40); MCH 35.5 pg (25.7-33.7); MCHC 33.1 g/dl (32.0-36.0); MEAN CELL VOLUME 107.3 fl (80-96); MONO % 6.5 % (3.8-10.2); NEUT % 79.2 % (42.8-82.8); PLATELET COUNT 275 10^3/uL (134-434); RBC 2.76 M/mm3 (3.60-5.2); RDW 22.2 % (11.6-15.6); WHITE BLOOD COUNT 12.9 K/mm3 (4.0-10.0)
[2021-02-09 09:04] LABS: INR 1.81 (0.83-1.09); PROTHROMBIN TIME (PATIENT) 20.4 SEC (9.7-13.0)
[2021-02-09 09:23] LABS: MAGNESIUM 1.5 mg/dL (1.8-2.4)
[2021-02-09 09:26] LABS: PHOSPHOROUS 3.6 mg/dL (2.5-4.9)
[2021-02-09 09:28] LABS: BLOOD UREA NITROGEN 7.6 mg/dL (7-18); CALCIUM 8.6 mg/dL (8.5-10.1)
[2021-02-09 09:30] LABS: CREATININE 0.6 mg/dL (0.55-1.3)
[2021-02-09 09:31] LABS: BILIRUBIN,DIRECT 5.3 mg/dL (0.0-0.2)
[2021-02-09 09:32] LABS: BILIRUBIN,TOTAL 6.5 mg/dL (0.2-1); TOT PROT 7.4 g/dl (6.4-8.2)
[2021-02-09 09:36] LABS: ALBUMIN 2.4 g/dl (3.4-5.0)
[2021-02-09] MEDS ORDERED: PT OWN MED DRAWER 7, Y5N ONE (09:36)
[2021-02-09] MEDS: FUROSEMIDE 40 MG TABLET (FP) PO SCH (09:38)
[2021-02-09] MEDS: POTASSIUM CHLORIDE TABS 20 MEQ TABLET.ER (FP) PO SCH (09:38)
[2021-02-09] MEDS: ENOXAPARIN NA (PORCINE) 40 MG/0.4 ML DISP.SYRIN SQ SCH (09:38)
[2021-02-09] MEDS: MULTIVITAMINS (DAILY MVI) TABLET (FP) PO SCH (09:38)
[2021-02-09] MEDS: THIAMINE HCL 100 MG TABLET (FP) PO SCH (09:38)
[2021-02-09] MEDS: CLOTRIMAZOLE 1% CREAM TP SCH ×2 (09:39→21:38)
[2021-02-09] MEDS: BUDESONIDE/FORMETEROL FUMARATE 160/4.5 mcg INHALER IH SCH ×2 (09:39→21:37)
[2021-02-09] MEDS: guaiFENesin/CODEINE 10 ML UNIT-DOSE CUPS PO PRN (09:42)
[2021-02-09 10:56] LABS: ANISOCYTOSIS 2+; MACROCYTOSIS 2+; PLATELET ESTIMATE NORMAL
[2021-02-09] MEDS ORDERED: HYDROmorphone HCL 2 MG TABLET PO PRN (16:11)
[2021-02-09] MEDS: FUROSEMIDE 40 MG/4 ML INJECTABLE VIAL IVPUSH SCH (16:19)
[2021-02-09] MEDS ORDERED: hydrOXYzine HCL 10 MG/5 ML LIQUID BULK BOTTLE PO PRN (17:39)
[2021-02-09] MEDS: MICONAZOLE NITRATE 200 MG VAGINAL SUPPOSITORY PV SCH (21:37)
[2021-02-10] MEDS: MAG HYDROX/ALH/SMC/DPHA/LIDO 240 ML MOUTHWASH MM SCH ×6 (01:00→23:10)
[2021-02-10] MEDS: FUROSEMIDE 40 MG/4 ML INJECTABLE VIAL IVPUSH SCH ×2 (05:40→13:14)
[2021-02-10] MEDS: LEVOTHYROXINE NA 25 MCG TABLET (FP) PO SCH (06:10)
[2021-02-10] MEDS: ALBUTEROL SO4 2.5/IPRATROPIUM 0.5 INH SOL 3 ML VIAL.NEB. NEB SCH ×3 (08:05→20:05)
[2021-02-10 08:22] LABS: BASO % 0.7 % (0-2.0); HEMATOCRIT 29.4 % (32.4-45.2); HEMOGLOBIN 9.8 GM/dL (10.7-15.3); LYMPH % 14.1 % (8-40); MCH 35.6 pg (25.7-33.7); MCHC 33.4 g/dl (32.0-36.0); MEAN CELL VOLUME 106.6 fl (80-96); MEAN PLT VOLUME 9.2 fl (7.5-11.1); MONO % 4.8 % (3.8-10.2); NEUT % 76.4 % (42.8-82.8); PLATELET COUNT 257 10^3/uL (134-434); RBC 2.75 M/mm3 (3.60-5.2); RDW 21.9 % (11.6-15.6); WHITE BLOOD COUNT 11.2 K/mm3 (4.0-10.0)
[2021-02-10 08:28] LABS: INR 1.74 (0.83-1.09); PROTHROMBIN TIME (PATIENT) 20.5 SEC (9.7-13.0)
[2021-02-10 08:44] LABS: BLOOD UREA NITROGEN 7.9 mg/dL (7-18)
[2021-02-10 08:45] LABS: BILIRUBIN,TOTAL 5.6 mg/dL (0.2-1); TOT PROT 7.2 g/dl (6.4-8.2)
[2021-02-10 08:46] LABS: ALBUMIN 2.2 g/dl (3.4-5.0); BILIRUBIN,DIRECT 4.6 mg/dL (0.0-0.2); CREATININE 0.6 mg/dL (0.55-1.3)
[2021-02-10 08:47] LABS: CALCIUM 7.8 mg/dL (8.5-10.1)
[2021-02-10] MEDS: MULTIVITAMINS (DAILY MVI) TABLET (FP) PO SCH (09:40)
[2021-02-10] MEDS: ENOXAPARIN NA (PORCINE) 40 MG/0.4 ML DISP.SYRIN SQ SCH (09:40)
[2021-02-10] MEDS: BUDESONIDE/FORMETEROL FUMARATE 160/4.5 mcg INHALER IH SCH ×2 (09:40→23:10)
[2021-02-10] MEDS: POTASSIUM CHLORIDE TABS 20 MEQ TABLET.ER (FP) PO SCH (09:40)
[2021-02-10] MEDS: THIAMINE HCL 100 MG TABLET (FP) PO SCH (09:40)
[2021-02-10] MEDS: CLOTRIMAZOLE 1% CREAM TP SCH ×2 (09:45→21:41)
[2021-02-10] MEDS: NYSTATIN POWDER 100,000 UNITS/GM - 15 GM TOPICAL POWDER TP SCH (17:09)
[2021-02-10] MEDS: MICONAZOLE NITRATE 200 MG VAGINAL SUPPOSITORY PV SCH (21:41)
[2021-02-11] MEDS ORDERED: PT OWN MED DRAWER 7, Y5N ONE (06:49)
[2021-02-11] MEDS: MAG HYDROX/ALH/SMC/DPHA/LIDO 240 ML MOUTHWASH MM SCH ×3 (06:54→17:24)
[2021-02-11] MEDS: FUROSEMIDE 40 MG/4 ML INJECTABLE VIAL IVPUSH SCH ×2 (06:54→15:00)
[2021-02-11] MEDS: LEVOTHYROXINE NA 25 MCG TABLET (FP) PO SCH (06:54)
[2021-02-11] MEDS: ALBUTEROL SO4 2.5/IPRATROPIUM 0.5 INH SOL 3 ML VIAL.NEB. NEB SCH ×3 (07:28→20:09)
[2021-02-11 08:06] LABS: BASO % 0.8 % (0-2.0); EOS % 2.6 % (0-4.5); HEMATOCRIT 26.4 % (32.4-45.2); LYMPH % 13.8 % (8-40); MCH 36.1 pg (25.7-33.7); MEAN CELL VOLUME 106.1 fl (80-96); MEAN PLT VOLUME 9.5 fl (7.5-11.1); MONO % 6.3 % (3.8-10.2); NEUT % 76.5 % (42.8-82.8); PLATELET COUNT 228 10^3/uL (134-434); RBC 2.49 M/mm3 (3.60-5.2); RDW 21.8 % (11.6-15.6); WHITE BLOOD COUNT 10.5 K/mm3 (4.0-10.0)
[2021-02-11 08:43] LABS: CREATININE 0.4 mg/dL (0.55-1.3)
[2021-02-11 08:44] LABS: ALBUMIN 2.1 g/dl (3.4-5.0)
[2021-02-11 08:45] LABS: TOT PROT 6.5 g/dl (6.4-8.2)
[2021-02-11] MEDS: ENOXAPARIN NA (PORCINE) 40 MG/0.4 ML DISP.SYRIN SQ SCH (09:51)
[2021-02-11] MEDS: MULTIVITAMINS (DAILY MVI) TABLET (FP) PO SCH (09:52)
[2021-02-11] MEDS: THIAMINE HCL 100 MG TABLET (FP) PO SCH (09:52)
[2021-02-11] MEDS: POTASSIUM CHLORIDE TABS 20 MEQ TABLET.ER (FP) PO SCH (09:52)
[2021-02-11] MEDS: NYSTATIN POWDER 100,000 UNITS/GM - 15 GM TOPICAL POWDER TP SCH (09:53)
[2021-02-11] MEDS: CLOTRIMAZOLE 1% CREAM TP SCH ×2 (09:55→23:42)
[2021-02-11] MEDS: BUDESONIDE/FORMETEROL FUMARATE 160/4.5 mcg INHALER IH SCH ×2 (09:56→23:42)
[2021-02-12] MEDS: MAG HYDROX/ALH/SMC/DPHA/LIDO 240 ML MOUTHWASH MM SCH ×4 (01:00→18:00)
[2021-02-12] MEDS ORDERED: PT OWN MED DRAWER 7, Y5N ONE (06:09)
[2021-02-12] MEDS: FUROSEMIDE 40 MG/4 ML INJECTABLE VIAL IVPUSH SCH ×2 (06:12→13:25)
[2021-02-12] MEDS: LEVOTHYROXINE NA 25 MCG TABLET (FP) PO SCH (06:12)
[2021-02-12] MEDS: ALBUTEROL SO4 2.5/IPRATROPIUM 0.5 INH SOL 3 ML VIAL.NEB. NEB SCH ×3 (08:25→19:55)
[2021-02-12 09:24] LABS: EPI CELLS 29 /uL (0-25.1); HYALINE CASTS 6 /uL (0-3.1); PH,URINE 5.5 (5.0-8.0); URINE APPEARANCE CLEAR; URINE BILIRUBIN 2+ (NEGATIVE); URINE COLOR DK YELLOW; URINE GLUCOSE (UA) NEGATIVE (NEGATIVE); URINE KETONE NEGATIVE (NEGATIVE); URINE LEUK ESTERASE TRACE (NEGATIVE); URINE NITRITE POSITIVE (NEGATIVE); URINE PROTEIN NEGATIVE (NEGATIVE); URINE UROBILINOGEN 4.0 E.U/dl mg/dL (0.2-1.0); URINE WBC 43 /uL (0-25.8)
[2021-02-12] MEDS: ENOXAPARIN NA (PORCINE) 40 MG/0.4 ML DISP.SYRIN SQ SCH (09:42)
[2021-02-12] MEDS: THIAMINE HCL 100 MG TABLET (FP) PO SCH (09:43)
[2021-02-12] MEDS: POTASSIUM CHLORIDE TABS 20 MEQ TABLET.ER (FP) PO SCH ×2 (09:43→22:36)
[2021-02-12] MEDS: MULTIVITAMINS (DAILY MVI) TABLET (FP) PO SCH (09:43)
[2021-02-12] MEDS: CLOTRIMAZOLE 1% CREAM TP SCH ×2 (09:43→22:37)
[2021-02-12] MEDS: NYSTATIN POWDER 100,000 UNITS/GM - 15 GM TOPICAL POWDER TP SCH (09:44)
[2021-02-12] MEDS: BUDESONIDE/FORMETEROL FUMARATE 160/4.5 mcg INHALER IH SCH ×2 (09:45→22:36)
[2021-02-12 09:59] LABS: URINE RBC 17.9 /uL (0-23.9)
[2021-02-12 10:03] LABS: URINE BACTERIA 501.7 /uL (0-1359)
[2021-02-12] MEDS ORDERED: INSULIN (NOVOLOG) ASPART 100 UNITS/ML 10ML VIAL ONE (18:46)
[2021-02-12] MEDS: CEFUROXIME AXETIL 500 MG TABLET PO SCH (22:36)
[2021-02-13] MEDS: MAG HYDROX/ALH/SMC/DPHA/LIDO 240 ML MOUTHWASH MM SCH ×4 (00:04→17:22)
[2021-02-13] MEDS: LEVOTHYROXINE NA 25 MCG TABLET (FP) PO SCH (06:09)
[2021-02-13] MEDS: FUROSEMIDE 40 MG/4 ML INJECTABLE VIAL IVPUSH SCH ×2 (06:10→14:46)
[2021-02-13] MEDS: ALBUTEROL SO4 2.5/IPRATROPIUM 0.5 INH SOL 3 ML VIAL.NEB. NEB SCH (07:40)
[2021-02-13 09:10] LABS: BLOOD UREA NITROGEN 5.4 mg/dL (7-18); CALCIUM 8.3 mg/dL (8.5-10.1)
[2021-02-13 09:13] LABS: CREATININE 0.5 mg/dL (0.55-1.3)
[2021-02-13 09:18] LABS: N-TERMINAL BNP 283.2 pg/ml (5-125)
[2021-02-13] MEDS: ENOXAPARIN NA (PORCINE) 40 MG/0.4 ML DISP.SYRIN SQ SCH (09:35)
[2021-02-13] MEDS: POLYETHYLENE GLYCOL (HEALTHYLAX) 3350 17 GM PACKET PO PRN (09:35)
[2021-02-13] MEDS: POTASSIUM CHLORIDE TABS 20 MEQ TABLET.ER (FP) PO SCH ×2 (09:35→22:33)
[2021-02-13] MEDS: NYSTATIN POWDER 100,000 UNITS/GM - 15 GM TOPICAL POWDER TP SCH (09:36)
[2021-02-13] MEDS: CLOTRIMAZOLE 1% CREAM TP SCH ×2 (09:36→22:34)
[2021-02-13] MEDS: THIAMINE HCL 100 MG TABLET (FP) PO SCH (09:36)
[2021-02-13] MEDS: MULTIVITAMINS (DAILY MVI) TABLET (FP) PO SCH (09:36)
[2021-02-13] MEDS: BUDESONIDE/FORMETEROL FUMARATE 160/4.5 mcg INHALER IH SCH ×2 (09:37→22:35)
[2021-02-13] MEDS: CEFUROXIME AXETIL 500 MG TABLET PO SCH ×2 (09:41→22:33)
[2021-02-13 11:12] LABS: ALBUMIN 2.4 g/dl (3.4-5.0)
[2021-02-13 11:15] LABS: BILIRUBIN,DIRECT 4.2 mg/dL (0.0-0.2)
[2021-02-13 11:17] LABS: BILIRUBIN,TOTAL 5.2 mg/dL (0.2-1); TOT PROT 7.4 g/dl (6.4-8.2)
[2021-02-13] MEDS ORDERED: POTASSIUM CHLORIDE TABS 20 MEQ TABLET.ER (FP) PO ONE (13:45)
[2021-02-13] MEDS ORDERED: ACETAMINOPHEN 325 MG TABLET (FP) PO ONE (17:26)
[2021-02-14] MEDS: MAG HYDROX/ALH/SMC/DPHA/LIDO 240 ML MOUTHWASH MM SCH ×4 (00:35→17:28)
[2021-02-14] MEDS: FUROSEMIDE 40 MG/4 ML INJECTABLE VIAL IVPUSH SCH ×2 (06:01→14:18)
[2021-02-14] MEDS: LEVOTHYROXINE NA 25 MCG TABLET (FP) PO SCH (06:14)
[2021-02-14 08:31] LABS: EOS % 3.4 % (0-4.5); HEMATOCRIT 30.5 % (32.4-45.2); HEMOGLOBIN 10.2 GM/dL (10.7-15.3); LYMPH % 12.8 % (8-40); MCH 35.2 pg (25.7-33.7); MCHC 33.5 g/dl (32.0-36.0); MEAN CELL VOLUME 104.9 fl (80-96); MEAN PLT VOLUME 9.2 fl (7.5-11.1); MONO % 6.2 % (3.8-10.2); NEUT % 76.6 % (42.8-82.8); PLATELET COUNT 252 10^3/uL (134-434); RBC 2.91 M/mm3 (3.60-5.2); RDW 20.7 % (11.6-15.6); WHITE BLOOD COUNT 11.2 K/mm3 (4.0-10.0)
[2021-02-14 08:33] LABS: INR 1.82 (0.83-1.09); PROTHROMBIN TIME (PATIENT) 21.4 SEC (9.7-13.0)
[2021-02-14 09:12] LABS: CALCIUM 8.4 mg/dL (8.5-10.1)
[2021-02-14 09:13] LABS: ALBUMIN 2.3 g/dl (3.4-5.0); BLOOD UREA NITROGEN 5.9 mg/dL (7-18)
[2021-02-14 09:15] LABS: BILIRUBIN,DIRECT 4.2 mg/dL (0.0-0.2); CREATININE 0.5 mg/dL (0.55-1.3)
[2021-02-14 09:17] LABS: BILIRUBIN,TOTAL 5.2 mg/dL (0.2-1); TOT PROT 7.6 g/dl (6.4-8.2)
[2021-02-14] MEDS: ENOXAPARIN NA (PORCINE) 40 MG/0.4 ML DISP.SYRIN SQ SCH (09:25)
[2021-02-14] MEDS: MULTIVITAMINS (DAILY MVI) TABLET (FP) PO SCH (09:26)
[2021-02-14] MEDS: POTASSIUM CHLORIDE TABS 20 MEQ TABLET.ER (FP) PO SCH ×2 (09:26→21:59)
[2021-02-14] MEDS: CEFUROXIME AXETIL 500 MG TABLET PO SCH ×2 (09:26→21:59)
[2021-02-14] MEDS: THIAMINE HCL 100 MG TABLET (FP) PO SCH (09:26)
[2021-02-14] MEDS: CLOTRIMAZOLE 1% CREAM TP SCH ×2 (09:27→22:09)
[2021-02-14] MEDS: BUDESONIDE/FORMETEROL FUMARATE 160/4.5 mcg INHALER IH SCH ×2 (09:28→22:09)
[2021-02-14] MEDS: NYSTATIN POWDER 100,000 UNITS/GM - 15 GM TOPICAL POWDER TP SCH (09:28)
[2021-02-14 11:06] LABS: ANISOCYTOSIS 1+; MACROCYTOSIS 1+; PLATELET ESTIMATE NORMAL; TARGET CELLS 2+
[2021-02-14] MEDS ORDERED: POTASSIUM CHLORIDE ORAL LIQUID 20 MEQ/15 ML PO ONE (11:15)
[2021-02-14] MEDS ORDERED: POTASSIUM CHLORIDE TABS 10 MEQ TABLET.ER (FP) PO SCH (11:15)
[2021-02-15] MEDS: MAG HYDROX/ALH/SMC/DPHA/LIDO 240 ML MOUTHWASH MM SCH ×4 (00:27→17:19)
[2021-02-15] MEDS: FUROSEMIDE 40 MG/4 ML INJECTABLE VIAL IVPUSH SCH (05:51)
[2021-02-15] MEDS: LEVOTHYROXINE NA 25 MCG TABLET (FP) PO SCH (07:01)
[2021-02-15 07:47] LABS: BASO % 0.6 % (0-2.0); EOS % 3.5 % (0-4.5); HEMATOCRIT 31.3 % (32.4-45.2); HEMOGLOBIN 10.6 GM/dL (10.7-15.3); LYMPH % 13.9 % (8-40); MCH 35.3 pg (25.7-33.7); MCHC 33.8 g/dl (32.0-36.0); MEAN CELL VOLUME 104.4 fl (80-96); MEAN PLT VOLUME 9.9 fl (7.5-11.1); MONO % 6.7 % (3.8-10.2); NEUT % 75.3 % (42.8-82.8); PLATELET COUNT 275 10^3/uL (134-434); RDW 20.3 % (11.6-15.6)
[2021-02-15 08:00] LABS: ALBUMIN 2.4 g/dl (3.4-5.0); BLOOD UREA NITROGEN 7.2 mg/dL (7-18); CALCIUM 8.7 mg/dL (8.5-10.1); MAGNESIUM 1.6 mg/dL (1.8-2.4)
[2021-02-15 08:03] LABS: CREATININE 0.5 mg/dL (0.55-1.3)
[2021-02-15 08:05] LABS: BILIRUBIN,TOTAL 4.9 mg/dL (0.2-1); TOT PROT 7.9 g/dl (6.4-8.2)
[2021-02-15] MEDS ORDERED: MAGNESIUM SULF 50% (8.12 MEQ/2 ML-1 GM VIAL) IVPB ONE ×2 (08:23→10:48)
[2021-02-15] MEDS ORDERED: PT OWN MED DRAWER 7, Y5N ONE (09:39)
[2021-02-15] MEDS: MULTIVITAMINS (DAILY MVI) TABLET (FP) PO SCH (09:41)
[2021-02-15] MEDS: THIAMINE HCL 100 MG TABLET (FP) PO SCH (09:41)
[2021-02-15] MEDS: POTASSIUM CHLORIDE TABS 20 MEQ TABLET.ER (FP) PO SCH ×2 (09:41→22:04)
[2021-02-15] MEDS: ENOXAPARIN NA (PORCINE) 40 MG/0.4 ML DISP.SYRIN SQ SCH (09:42)
[2021-02-15] MEDS: CLOTRIMAZOLE 1% CREAM TP SCH ×2 (09:42→23:30)
[2021-02-15] MEDS: BUDESONIDE/FORMETEROL FUMARATE 160/4.5 mcg INHALER IH SCH ×2 (09:42→22:04)
[2021-02-15] MEDS: NYSTATIN POWDER 100,000 UNITS/GM - 15 GM TOPICAL POWDER TP SCH (09:42)
[2021-02-15] MEDS: CEFUROXIME AXETIL 500 MG TABLET PO SCH ×2 (10:59→22:03)
[2021-02-16] MEDS: MAG HYDROX/ALH/SMC/DPHA/LIDO 240 ML MOUTHWASH MM SCH ×5 (01:22→23:31)
[2021-02-16] MEDS: LEVOTHYROXINE NA 25 MCG TABLET (FP) PO SCH (06:39)
[2021-02-16] MEDS: CEFUROXIME AXETIL 500 MG TABLET PO SCH ×2 (09:16→21:13)
[2021-02-16] MEDS: POTASSIUM CHLORIDE TABS 20 MEQ TABLET.ER (FP) PO SCH ×2 (09:16→21:13)
[2021-02-16] MEDS: ENOXAPARIN NA (PORCINE) 40 MG/0.4 ML DISP.SYRIN SQ SCH (09:16)
[2021-02-16] MEDS: THIAMINE HCL 100 MG TABLET (FP) PO SCH (09:16)
[2021-02-16] MEDS: BUDESONIDE/FORMETEROL FUMARATE 160/4.5 mcg INHALER IH SCH ×2 (09:16→21:13)
[2021-02-16] MEDS: TORSEMIDE 20 MG TABLET (FP) PO SCH (09:16)
[2021-02-16] MEDS: MULTIVITAMINS (DAILY MVI) TABLET (FP) PO SCH (09:16)
[2021-02-16] MEDS: NYSTATIN POWDER 100,000 UNITS/GM - 15 GM TOPICAL POWDER TP SCH (09:17)
[2021-02-16] MEDS: CLOTRIMAZOLE 1% CREAM TP SCH ×2 (09:18→21:13)
[2021-02-16] MEDS: MAGNESIUM OXIDE 400 MG TABLET (FP) PO SCH (11:49)
[2021-02-17] MEDS: MAG HYDROX/ALH/SMC/DPHA/LIDO 240 ML MOUTHWASH MM SCH ×4 (05:40→23:14)
[2021-02-17] MEDS: LEVOTHYROXINE NA 25 MCG TABLET (FP) PO SCH (06:23)
[2021-02-17 08:12] LABS: HEMOGLOBIN 9.5 GM/dL (10.7-15.3); MCH 34.7 pg (25.7-33.7); MCHC 33.9 g/dl (32.0-36.0); MEAN CELL VOLUME 102.3 fl (80-96); MEAN PLT VOLUME 9.8 fl (7.5-11.1); MONO % 7.2 % (3.8-10.2); NEUT % 75.8 % (42.8-82.8); PLATELET COUNT 236 10^3/uL (134-434); RBC 2.73 M/mm3 (3.60-5.2); RDW 19.8 % (11.6-15.6); WHITE BLOOD COUNT 11.3 K/mm3 (4.0-10.0)
[2021-02-17 08:32] LABS: CALCIUM 8.3 mg/dL (8.5-10.1)
[2021-02-17 08:33] LABS: BLOOD UREA NITROGEN 6.7 mg/dL (7-18); MAGNESIUM 1.7 mg/dL (1.8-2.4)
[2021-02-17 08:36] LABS: CREATININE 0.4 mg/dL (0.55-1.3); PHOSPHOROUS 3.8 mg/dL (2.5-4.9)
[2021-02-17] MEDS: CEFUROXIME AXETIL 500 MG TABLET PO SCH ×2 (10:13→21:54)
[2021-02-17] MEDS: MAGNESIUM OXIDE 400 MG TABLET (FP) PO SCH (10:14)
[2021-02-17] MEDS: THIAMINE HCL 100 MG TABLET (FP) PO SCH (10:14)
[2021-02-17] MEDS: TORSEMIDE 20 MG TABLET (FP) PO SCH (10:14)
[2021-02-17] MEDS: ENOXAPARIN NA (PORCINE) 40 MG/0.4 ML DISP.SYRIN SQ SCH (10:16)
[2021-02-17] MEDS: BUDESONIDE/FORMETEROL FUMARATE 160/4.5 mcg INHALER IH SCH ×2 (10:16→21:54)
[2021-02-17] MEDS: NYSTATIN POWDER 100,000 UNITS/GM - 15 GM TOPICAL POWDER TP SCH (10:16)
[2021-02-17] MEDS: MULTIVITAMINS (DAILY MVI) TABLET (FP) PO SCH (10:16)
[2021-02-17] MEDS: POTASSIUM CHLORIDE TABS 20 MEQ TABLET.ER (FP) PO SCH ×2 (10:16→21:54)
[2021-02-17] MEDS: POLYETHYLENE GLYCOL (HEALTHYLAX) 3350 17 GM PACKET PO PRN (10:16)
[2021-02-17] MEDS: CLOTRIMAZOLE 1% CREAM TP SCH ×2 (11:03→21:54)
[2021-02-18] MEDS: MAG HYDROX/ALH/SMC/DPHA/LIDO 240 ML MOUTHWASH MM SCH ×4 (05:17→17:19)
[2021-02-18] MEDS: LEVOTHYROXINE NA 25 MCG TABLET (FP) PO SCH (06:29)
[2021-02-18] MEDS: NYSTATIN POWDER 100,000 UNITS/GM - 15 GM TOPICAL POWDER TP SCH (09:51)
[2021-02-18] MEDS: THIAMINE HCL 100 MG TABLET (FP) PO SCH (09:51)
[2021-02-18] MEDS: POTASSIUM CHLORIDE TABS 20 MEQ TABLET.ER (FP) PO SCH ×2 (09:51→21:37)
[2021-02-18] MEDS: MAGNESIUM OXIDE 400 MG TABLET (FP) PO SCH (09:51)
[2021-02-18] MEDS: BUDESONIDE/FORMETEROL FUMARATE 160/4.5 mcg INHALER IH SCH ×2 (09:51→21:38)
[2021-02-18] MEDS: TORSEMIDE 20 MG TABLET (FP) PO SCH (09:51)
[2021-02-18] MEDS: CLOTRIMAZOLE 1% CREAM TP SCH ×2 (09:51→21:41)
[2021-02-18] MEDS: MULTIVITAMINS (DAILY MVI) TABLET (FP) PO SCH (09:51)
[2021-02-18] MEDS: CEFUROXIME AXETIL 500 MG TABLET PO SCH ×2 (09:52→21:37)
[2021-02-18 10:33] LABS: CALCIUM 8.3 mg/dL (8.5-10.1)
[2021-02-18 10:35] LABS: ALBUMIN 2.1 g/dl (3.4-5.0); BLOOD UREA NITROGEN 5.9 mg/dL (7-18); MAGNESIUM 1.7 mg/dL (1.8-2.4)
[2021-02-18 10:38] LABS: CREATININE 0.5 mg/dL (0.55-1.3)
[2021-02-18 10:39] LABS: BILIRUBIN,TOTAL 4.5 mg/dL (0.2-1); TOT PROT 7.2 g/dl (6.4-8.2)
[2021-02-18] MEDS ORDERED: SODIUM CHLORIDE NASAL SPRAY 44 ML BOTTLE NS PRN (18:30)
[2021-02-18] MEDS ORDERED: PT OWN MED DRAWER 7, Y5N ONE (22:14)
[2021-02-19] MEDS: MAG HYDROX/ALH/SMC/DPHA/LIDO 240 ML MOUTHWASH MM SCH ×6 (00:05→23:02)
[2021-02-19] MEDS: LEVOTHYROXINE NA 25 MCG TABLET (FP) PO SCH (06:41)
[2021-02-19] MEDS: TORSEMIDE 20 MG TABLET (FP) PO SCH (11:02)
[2021-02-19] MEDS: MULTIVITAMINS (DAILY MVI) TABLET (FP) PO SCH (11:03)
[2021-02-19] MEDS: CEFUROXIME AXETIL 500 MG TABLET PO SCH (11:03)
[2021-02-19] MEDS: POTASSIUM CHLORIDE TABS 20 MEQ TABLET.ER (FP) PO SCH ×2 (11:03→22:52)
[2021-02-19] MEDS: THIAMINE HCL 100 MG TABLET (FP) PO SCH (11:03)
[2021-02-19] MEDS: MAGNESIUM OXIDE 400 MG TABLET (FP) PO SCH (11:03)
[2021-02-19] MEDS: BUDESONIDE/FORMETEROL FUMARATE 160/4.5 mcg INHALER IH SCH ×2 (11:04→22:59)
[2021-02-19] MEDS: CLOTRIMAZOLE 1% CREAM TP SCH ×2 (11:06→22:59)
[2021-02-19] MEDS: NYSTATIN POWDER 100,000 UNITS/GM - 15 GM TOPICAL POWDER TP SCH (11:06)
[2021-02-20] MEDS: MAG HYDROX/ALH/SMC/DPHA/LIDO 240 ML MOUTHWASH MM SCH ×4 (06:26→23:56)
[2021-02-20] MEDS: LEVOTHYROXINE NA 25 MCG TABLET (FP) PO SCH (06:26)
[2021-02-20 09:02] LABS: CALCIUM 8.5 mg/dL (8.5-10.1)
[2021-02-20 09:03] LABS: BLOOD UREA NITROGEN 6.6 mg/dL (7-18); MAGNESIUM 1.7 mg/dL (1.8-2.4)
[2021-02-20 09:06] LABS: CREATININE 0.4 mg/dL (0.55-1.3)
[2021-02-20] MEDS: THIAMINE HCL 100 MG TABLET (FP) PO SCH (09:18)
[2021-02-20] MEDS: MAGNESIUM OXIDE 400 MG TABLET (FP) PO SCH ×2 (09:18→22:35)
[2021-02-20] MEDS: MULTIVITAMINS (DAILY MVI) TABLET (FP) PO SCH (09:18)
[2021-02-20] MEDS: TORSEMIDE 20 MG TABLET (FP) PO SCH (09:18)
[2021-02-20] MEDS: POTASSIUM CHLORIDE TABS 20 MEQ TABLET.ER (FP) PO SCH ×2 (09:18→22:35)
[2021-02-20] MEDS: BUDESONIDE/FORMETEROL FUMARATE 160/4.5 mcg INHALER IH SCH ×2 (09:18→22:41)
[2021-02-20] MEDS: CLOTRIMAZOLE 1% CREAM TP SCH ×2 (09:19→22:41)
[2021-02-20] MEDS: NYSTATIN POWDER 100,000 UNITS/GM - 15 GM TOPICAL POWDER TP SCH (09:19)
[2021-02-20] MEDS ORDERED: MAGNESIUM SULF 50% (8.12 MEQ/2 ML-1 GM VIAL) IVPB ONE (10:17)
[2021-02-20] MEDS ORDERED: POTASSIUM CHLORIDE TABS 20 MEQ TABLET.ER (FP) PO ONE (12:00)
[2021-02-21] MEDS: MAG HYDROX/ALH/SMC/DPHA/LIDO 240 ML MOUTHWASH MM SCH ×3 (06:14→17:15)
[2021-02-21] MEDS: LEVOTHYROXINE NA 25 MCG TABLET (FP) PO SCH (06:14)
[2021-02-21] MEDS: TORSEMIDE 20 MG TABLET (FP) PO SCH (09:04)
[2021-02-21] MEDS: POTASSIUM CHLORIDE TABS 20 MEQ TABLET.ER (FP) PO SCH ×2 (09:04→21:59)
[2021-02-21] MEDS: NYSTATIN POWDER 100,000 UNITS/GM - 15 GM TOPICAL POWDER TP SCH (09:05)
[2021-02-21] MEDS: THIAMINE HCL 100 MG TABLET (FP) PO SCH (09:05)
[2021-02-21] MEDS: MULTIVITAMINS (DAILY MVI) TABLET (FP) PO SCH (09:05)
[2021-02-21] MEDS: MAGNESIUM OXIDE 400 MG TABLET (FP) PO SCH ×2 (09:05→21:59)
[2021-02-21] MEDS: CLOTRIMAZOLE 1% CREAM TP SCH ×2 (09:05→21:40)
[2021-02-21] MEDS: BUDESONIDE/FORMETEROL FUMARATE 160/4.5 mcg INHALER IH SCH ×2 (09:06→21:40)
[2021-02-21] MEDS: ENOXAPARIN NA (PORCINE) 40 MG/0.4 ML DISP.SYRIN SQ SCH (11:58)
[2021-02-21] MEDS ORDERED: ACETAMINOPHEN 325 MG TABLET (FP) PO PRN (14:29)
[2021-02-22] MEDS: MAG HYDROX/ALH/SMC/DPHA/LIDO 240 ML MOUTHWASH MM SCH ×3 (00:04→12:00)
[2021-02-22] MEDS: LEVOTHYROXINE NA 25 MCG TABLET (FP) PO SCH (08:06)
[2021-02-22 08:48] LABS: CALCIUM 8.7 mg/dL (8.5-10.1)
[2021-02-22 08:49] LABS: BLOOD UREA NITROGEN 6.4 mg/dL (7-18); MAGNESIUM 1.8 mg/dL (1.8-2.4)
[2021-02-22 08:52] LABS: CREATININE 0.4 mg/dL (0.55-1.3)
[2021-02-22] MEDS: ENOXAPARIN NA (PORCINE) 40 MG/0.4 ML DISP.SYRIN SQ SCH (09:44)
[2021-02-22] MEDS: POTASSIUM CHLORIDE TABS 20 MEQ TABLET.ER (FP) PO SCH (09:44)
[2021-02-22] MEDS: TORSEMIDE 20 MG TABLET (FP) PO SCH (09:44)
[2021-02-22] MEDS: CLOTRIMAZOLE 1% CREAM TP SCH (09:45)
[2021-02-22] MEDS: BUDESONIDE/FORMETEROL FUMARATE 160/4.5 mcg INHALER IH SCH (09:45)
[2021-02-22] MEDS: THIAMINE HCL 100 MG TABLET (FP) PO SCH (09:45)
[2021-02-22] MEDS: MAGNESIUM OXIDE 400 MG TABLET (FP) PO SCH (09:45)
[2021-02-22] MEDS: MULTIVITAMINS (DAILY MVI) TABLET (FP) PO SCH (09:45)
[2021-02-22] MEDS: NYSTATIN POWDER 100,000 UNITS/GM - 15 GM TOPICAL POWDER TP SCH (09:46)
[2021-02-22] MEDS ORDERED: POTASSIUM CHLORIDE TABS 20 MEQ TABLET.ER (FP) PO SCH (14:00)
[2021-02-22 15:19] VITALS: BP 114/74; PULSE 108; TEMP 98.7
== END 2021-02-22 18:19 | DRG 865 ==
LOC: JER 10:03 → JERBED 23:49 → J7W 01-30 10:38
PROVIDERS: ADMIT Internal Medicine; ATTEND Family Medicine
DX: B02.7 Disseminated zoster (principal); J96.01 Acute respiratory failure with hypoxia; J18.9 Pneumonia, unspecified organism; I50.33 Acute on chronic diastolic (congestive) heart failure; N39.0 Urinary tract infection, site not specified; J98.11 Atelectasis; N17.9 Acute kidney failure, unspecified; E87.3 Alkalosis; Z68.38 Body mass index [BMI] 38.0-38.9, adult; Z93.1 Gastrostomy status; B37.2 Candidiasis of skin and nail; R42 Dizziness and giddiness; E80.6 Other disorders of bilirubin metabolism; F41.9 Anxiety disorder, unspecified; R53.81 Other malaise; F10.11 Alcohol abuse, in remission; B37.3 Candidiasis of vulva and vagina; R74.8 Abnormal levels of other serum enzymes; G47.33 Obstructive sleep apnea (adult) (pediatric); E66.01 Morbid (severe) obesity due to excess calories; K70.9 Alcoholic liver disease, unspecified; M54.50 Low back pain, unspecified; K76.0 Fatty (change of) liver, not elsewhere classified; R00.0 Tachycardia, unspecified; R04.0 Epistaxis; D64.9 Anemia, unspecified; R31.0 Gross hematuria; E87.70 Fluid overload, unspecified; E87.6 Hypokalemia; E03.9 Hypothyroidism, unspecified
CPT/HCPCS: 36415; 36600; 70450-TC; 71045-TC-FY; 71046-TC-FY; 71250-TC; 71275-TC; 76705-TC; 76775-TC; 76856-TC; 80048; 80053; 80076; 81003; 82105; 82140; 82390; 82525; 82550; 82570; 82607; 82728; 82746; 82803; 82962; 83516; 83540; 83550; 83690; 83735; 83880; 84100; 84156; 84300; 84443; 84484; 84703; 85025; 85045; 85379; 85610; 85651; 85730; 86038; 86140; 86709; 86780; 86803; 87040; 87086; 87340; 87389; 87517; 87529; 93005; 93010; 93306-TC; 93970-TC; 94640; 97116-GP; 97161-GP; 99285-25; C9803; J1756; Q9967; U0003; U0005

== ENCOUNTER 2022-01-24 06:04 | Day surgery (SDC) | payer OTHER ==
[2022-01-21 13:30] VITALS: BMI 40.9
[2022-01-24] MEDS ORDERED: BUPIVACAINE HCL 100 ML ONE (07:18)
[2022-01-24] MEDS ORDERED: SODIUM CHLORIDE 0.9% P/F 10 ML VIAL IJ ONE (07:18)
[2022-01-24] MEDS ORDERED: BUPIVACAINE LIPOSOME/PF (EXPAREL) 266 MG/20 ML VIAL ONE (07:18)
[2022-01-24] MEDS ORDERED: MIDAZOLAM HCL 2 MG/2 ML SINGLE DOSE VIAL ONE (07:18)
[2022-01-24] MEDS ORDERED: BUPIVACAINE HCL/PF 0.25% (2.5MG/ML) 10 ML VIAL ONE (07:22)
[2022-01-24] MEDS ORDERED: SUCCINYLCHOLINE CHLORIDE 200 MG/10 ML SYRINGE ONE (07:48)
[2022-01-24] MEDS ORDERED: PROPOFOL 40 ML ONE (07:48)
[2022-01-24] MEDS ORDERED: ROCURONIUM BROMIDE 50 MG/5 ML SYRINGE ONE ×2 (07:55→08:53)
[2022-01-24] MEDS ORDERED: HYDROmorphone HCL/PF 1 MG/ML VIAL ONE (08:49)
[2022-01-24] MEDS ORDERED: KETOROLAC TROMETHAMINE 30 MG/1 ML VIAL ONE (08:49)
[2022-01-24] MEDS ORDERED: ceFAZolin SODIUM 1 GM VIAL ONE (08:49)
[2022-01-24] MEDS ORDERED: DEXAMETHASONE SOD PHOSPHATE 4 MG/1 ML VIAL ONE (08:49)
[2022-01-24] MEDS ORDERED: ONDANSETRON 4 MG/2 ML VIAL ONE (08:49)
[2022-01-24] MEDS ORDERED: NEOSTIGMINE METHYLSULFATE 0.5 MG/1 ML - 10 ML MDV ONE (10:03)
[2022-01-24] MEDS ORDERED: GLYCOPYRROLATE 0.2 MG/1 ML VIAL ONE (10:03)
[2022-01-24] MEDS ORDERED: oxyCODONE HCL 5 MG TABLET PO PRN ×2 (10:37)
[2022-01-24] MEDS ORDERED: ONDANSETRON 4 MG/2 ML VIAL IVPUSH PRN (10:37)
[2022-01-24] MEDS ORDERED: PROMETHAZINE HCL 25 MG/1 ML VIAL IVPUSH PRN (10:37)
[2022-01-24 11:20] VITALS: RESP 16
[2022-01-24 11:34] VITALS: TEMP 97.7
[2022-01-24] MEDS ORDERED: oxyCODONE HCL 5 MG TABLET ONE (11:38)
[2022-01-24] MEDS ORDERED: oxyCODONE HCL 5 MG TABLET PO ONE (11:41)
[2022-01-24 12:08] VITALS: BP 144/79; PULSE 75
== END 2022-01-24 15:15 | disposition home or self-care (01) ==
LOC: FASU 06:04
PROVIDERS: ATTEND Orthopaedic Surgery Sports Medicine
PROC: 0MNN4ZZ Release Right Knee Bursa and Ligament, Percutaneous Endoscopic Approach (ICD-10-PCS; 2022-01-24)
PROC: 0YQF0ZZ Repair Right Knee Region, Open Approach (ICD-10-PCS; 2022-01-24)
PROC: 0SBC4ZZ Excision of Right Knee Joint, Percutaneous Endoscopic Approach (ICD-10-PCS; principal; 2022-01-24 08:23)
PROC: 0SBC4ZZ Excision of Right Knee Joint, Percutaneous Endoscopic Approach (ICD-10-PCS; 2022-01-24 08:23)
DX: S83.241A Other tear of medial meniscus, current injury, right knee, initial encounter (principal); S83.281A Other tear of lateral meniscus, current injury, right knee, initial encounter; M25.361 Other instability, right knee; M65.9 Synovitis and tenosynovitis, unspecified
CPT/HCPCS: 73560-TC-RT-FY; 81025; 94760; C1713